=== PATIENT | male | born 1960 | race Caucasian/White ===

== ENCOUNTER → 2020-09-28 | Outpatient (CLI) | payer MEDICARE, OTHER ==
[~2020-09-28] MED LIST: BUSPIRONE HCL5 MG PO; CITALOPRAM; DICLOFENAC SODI75 MG PO; ENDOCET 7.5-321 EACH PO; LISINOPRIL10 MG PO; NEURONTIN300 MG PO; OMEPRAZOLE40 MG PO; ONE DAILY MEN'1 EACH PO; ROBAXIN 750 MG750 MG PO; VENTOLIN; VENTOLIN HFA 66.7 GM INH; ZAFIRLUKAST20 MG PO; ZOCOR40 MG PO
== END ==
LOC: KOH-I 12:39
DX: M75.121 Complete rotator cuff tear or rupture of right shoulder, not specified as traumatic (principal)
CPT/HCPCS: 73221

== ENCOUNTER → 2020-11-09 | Outpatient (CLI) | payer MEDICARE, OTHER ==
[2020-11-09 13:24] LABS: HEMOGLOBIN 11.4 gm/dl (14.0-17.5); RED BLOOD COUNT 3.63 M/UL (4.20-5.50); WHITE BLOOD COUNT 6.8 K/UL (4.5-11.0)
[2020-11-09 14:16] LABS: BUN/CREATININE RATIO 23 (0-10)
== END ==
LOC: EDSTATUS 11:00 → OPSV2 11:00
PROVIDERS: Orthopaedic Surgery
DX: Z01.818 Encounter for other preprocedural examination (principal); M75.101 Unspecified rotator cuff tear or rupture of right shoulder, not specified as traumatic
CPT/HCPCS: 36415; 71046; 80048; 81001; 85025; 87081; 93005

== ENCOUNTER → 2020-11-29 | Outpatient (CLI) | payer MEDICARE, OTHER ==
[2020-11-29 11:17] LABS: BUN/CREATININE RATIO 19 (0-10)
== END ==
LOC: LAB 09:53
PROVIDERS: Orthopaedic Surgery
DX: Z01.812 Encounter for preprocedural laboratory examination (principal)
CPT/HCPCS: 36415; 80048; 86850; 86900; 86901

== ENCOUNTER 2020-11-30 09:10 | Inpatient (IN) | payer MEDICARE, OTHER ==
[~2020-11-30] VITALS: Ht 172.7 cm; Wt 107.0 kg
[~2020-11-30 09:10] MED LIST changes: -ENDOCET 7.5-321 EACH PO; -LISINOPRIL10 MG PO; -NEURONTIN300 MG PO
[2020-11-30 10:04] LABS: HEMOGLOBIN 10.9 gm/dl (14.0-17.5); RED BLOOD COUNT 3.39 M/UL (4.20-5.50); WHITE BLOOD COUNT 6.8 K/UL (4.5-11.0)
[2020-11-30] MEDS ORDERED: ENDOCET 7.5-321 EACH PO (15:46)
[2020-11-30] MEDS ORDERED: NEURONTIN300 MG PO (18:31)
[2020-12-01 03:52] LABS: HEMOGLOBIN 10.2 gm/dl (14.0-17.5); RED BLOOD COUNT 3.17 M/UL (4.20-5.50)
[2020-12-01 03:53] LABS: WHITE BLOOD COUNT 11.3 K/UL (4.5-11.0)
[2020-12-01 04:05] LABS: BUN/CREATININE RATIO 18 (0-10)
--- NOTE | 2020-12-01 13:33 | NUR ---
DISCUSSED PATIENT'S ELEVATED BLOOD PRESSURE WITH TOYIN LAZCANO APRN. NEW ORDER NOTED TO CONSULT HOSPITALIST SERVICES.
[2020-12-01] MEDS ORDERED: LISINOPRIL10 MG PO (16:12)
--- NOTE | 2020-12-01 17:12 | NUR ---
OK TO DC PATIENT AFTER LISINOPRIL ADMINISTERED. DISCUSSED MEDICATION CHANGES WITH PATIENT AND INSTRUCTIONS REGARDING SAFE MEDICATION ADMINISTRATION.
== END 2020-12-01 16:49 | disposition home or self-care (01) | DRG 483 ==
LOC: OR 09:10 → M/S 09:10 → OR 13:20 → M/S 16:50 → OR 16:50 → M/S 12-01 16:49
PROVIDERS: ADMIT Orthopaedic Surgery
PROC: 0RRJ00Z Replacement of Right Shoulder Joint with Reverse Ball and Socket Synthetic Substitute, Open Approach (ICD-10-PCS; principal; 2020-11-30 14:35)
DX: M75.101 Unspecified rotator cuff tear or rupture of right shoulder, not specified as traumatic (principal); I10 Essential (primary) hypertension; E78.5 Hyperlipidemia, unspecified; J44.9 Chronic obstructive pulmonary disease, unspecified; F17.210 Nicotine dependence, cigarettes, uncomplicated; K21.9 Gastro-esophageal reflux disease without esophagitis; Z79.899 Other long term (current) drug therapy; Z20.822 Contact with and (suspected) exposure to COVID-19; F41.9 Anxiety disorder, unspecified; Z98.42 Cataract extraction status, left eye; Z98.41 Cataract extraction status, right eye; Z83.3 Family history of diabetes mellitus; Z80.8 Family history of malignant neoplasm of other organs or systems; Z82.49 Family history of ischemic heart disease and other diseases of the circulatory system
CPT/HCPCS: 36415; 73020; 80048; 85025; 85027; 97161; 97165; C1713; C1776; J0171; J0690; J1100; J2001; J2270; J2370; J2405; J2704; J2710; J2795; J3010; J3370; J7120